=== PATIENT | male | born 1975 | race Native Hawaiian/Other Pacific Islander ===

== ENCOUNTER 2016-10-11 16:14 | Emergency (ER) | payer OTHER | END 2016-10-11 16:25 | disposition home or self-care (01) | LOC: ED 16:14 | DX: T14.8 Other injury of unspecified body region (principal) ==

== ENCOUNTER 2017-10-13 22:07 | Emergency (ER) | payer OTHER ==
[~2017-10-13] VITALS: Ht 180.3 cm; Wt 90.7 kg
[2017-10-14 00:37] VITALS: BP 142/79; TEMP 98.5
== END 2017-10-14 00:38 | disposition home or self-care (01) ==
LOC: ED 22:07
DX: S02.5XXA Fracture of tooth (traumatic), initial encounter for closed fracture (principal); K04.7 Periapical abscess without sinus
CPT/HCPCS: 96372; 99282; J1885

== ENCOUNTER 2017-10-22 05:50 | Outpatient (CLI) | payer OTHER | END 2017-10-22 06:11 | disposition short-term general hospital (02) | LOC: AMB 05:50 | DX: M79.604 Pain in right leg (principal); V49.88XA Car occupant (driver) (passenger) injured in other specified transport accidents, initial encounter; Y92.488 Other paved roadways as the place of occurrence of the external cause | CPT/HCPCS: A0425; A0429 ==

== ENCOUNTER 2017-10-22 06:22 | Emergency (ER) | payer OTHER ==
[~2017-10-22] VITALS: Ht 180.3 cm; Wt 90.7 kg
[2017-10-22 06:18] VITALS: BP 137/95; TEMP 98.2
== END 2017-10-22 07:40 | disposition home or self-care (01) ==
LOC: ED 06:22
DX: S00.93XA Contusion of unspecified part of head, initial encounter (principal); S80.01XA Contusion of right knee, initial encounter; V63.5XXA Driver of heavy transport vehicle injured in collision with car, pick-up truck or van in traffic accident, initial encounter
CPT/HCPCS: 99283